=== PATIENT | female | born 1955 | race Caucasian/White ===

== ENCOUNTER 2018-10-11 13:06 | Outpatient (CLI) | payer OTHER ==
--- NOTE | 2018-10-11 14:18 | BD ---
BONE DENSITOMETRY USING DEXA: HISTORY: Postmenopausal screening for osteoporosis. FINDINGS: Lumbar Spine: BMD (g/cm2) L1 0.843 T-Score: -1.3 Z-Score: 0.0 L2 0.933 T-Score: -0.9 Z-Score: 0.6 L3 0.883 T-Score: -1.8 Z-Score: 0.3 L4 0.975 T-Score: -0.8 Z-Score: 0.8 L1-L4 0.910 T-Score: -1.2 Z-Score: 0.2 Femoral Neck: 0.633 T-Score: -1.9 Z-Score: -0.6 Total Femur: 0.782 T-Score: -1.3 Z-Score: -0.3 The 28-bdog-fexpufmy risk for a major osteoporotic fracture is 9% and for a hip fracture is 1.1%. Impression: Osteopenia. POS: [facility]
== END 2018-10-11 13:07 | disposition home or self-care (01) ==
LOC: BICMAMMO 13:06
PROVIDERS: ATTEND Obstetrics & Gynecology
DX: Z12.31 Encounter for screening mammogram for malignant neoplasm of breast (principal); Z13.820 Encounter for screening for osteoporosis; Z85.89 Personal history of malignant neoplasm of other organs and systems; Z80.3 Family history of malignant neoplasm of breast; Z80.41 Family history of malignant neoplasm of ovary
CPT/HCPCS: 77063; 77067; 77080

== ENCOUNTER 2019-10-12 10:46 | Outpatient (CLI) | payer OTHER ==
--- NOTE | 2019-10-12 11:28 | MMO ---
Bilateral MAMMO Bilat Screen [facility]. CLINICAL HISTORY: Patient is 63 years old and is seen for screening. The patient has the following family history of breast cancer: mother. The patient has no personal history of cancer. VIEWS: The views performed were: bilateral craniocaudal with tomosynthesis and bilateral mediolateral oblique with tomosynthesis. FILMS COMPARED: The present examination has been compared to prior imaging studies performed at [facility] on 09/06/2015, 09/17/2016, 09/30/2017 and 10/11/2018. This study has been interpreted with the assistance of computer-aided detection. MAMMOGRAM FINDINGS: The breasts are heterogeneously dense, which could obscure a lesion on mammography. There are no suspicious masses, suspicious calcifications, or new areas of architectural distortion. IMPRESSION: THERE IS NO MAMMOGRAPHIC EVIDENCE OF MALIGNANCY. A ROUTINE FOLLOW-UP MAMMOGRAM IN 1 YEAR IS RECOMMENDED. THE RESULTS OF THIS EXAM WERE SENT TO THE PATIENT. ACR BI-RADS Category 1 - Negative MAMMOGRAPHY NOTE: 1. A negative mammogram report should not delay a biopsy if a dominant of clinically suspicious mass is present. 2. Approximately 10% to 15% of breast cancers are not detected by mammography. 3. Adenosis and dense breasts may obscure an underlying neoplasm. Reported by: KULDIP SANON MD Electonically Signed: [id number]
== END 2019-10-12 10:47 | disposition home or self-care (01) ==
LOC: BICMAMMO 10:46
PROVIDERS: ATTEND Obstetrics & Gynecology
DX: Z12.31 Encounter for screening mammogram for malignant neoplasm of breast (principal); Z80.3 Family history of malignant neoplasm of breast
CPT/HCPCS: 77063; 77067

== ENCOUNTER 2020-10-14 09:27 | Outpatient (CLI) | payer BC ==
--- NOTE | 2020-10-14 10:43 | BD ---
EXAM: Bone densitometry using DEXA HISTORY: 64 yo female. Screening for postmenopausal osteoporosis FINDINGS: L1--bone mineral density 0.909 g/sq cm; T score -0.7 ; Z score 0.7 L2--bone mineral density 0.913 g/sq cm; T score -1.0 ; Z score 0.5 L3--bone mineral density 0.924 g/sq cm; T score -1.5 ; Z score 0.2 L4--bone mineral density 0.957 g/sq cm; T score -0.9 ; Z score 0.8 Total L1-L4--bone mineral density 0.927 g/sq cm; T score -1.1 ; Z score 0.5 Left femoral neck--bone mineral density0.687; T score -1.5 ; Z score -0.1 Total proximal left femur--bone mineral density 0.802; T score -1.1 ; Z score 0.0 There has been an interval increase of 1.8% in the BMD of the lumbar spine and a increase of 2.6% i n the BMD of the proximal femur since the previous study of 10/11/2018. IMPRESSION: Osteopenia
--- NOTE | 2020-10-14 10:55 | MMO ---
Bilateral MAMMO Bilat Screen [facility]. CLINICAL HISTORY: Patient is 64 years old and is seen for screening. The patient has the following family history of breast cancer: mother. The patient has no personal history of cancer. VIEWS: The views performed were: bilateral craniocaudal with tomosynthesis and bilateral mediolateral oblique with tomosynthesis. FILMS COMPARED: The present examination has been compared to prior imaging studies performed at [facility] on 09/17/2016, 09/30/2017, 10/11/2018 and 10/12/2019. This study has been interpreted with the assistance of computer-aided detection. MAMMOGRAM FINDINGS: The breasts are heterogeneously dense, which could obscure a lesion on mammography. There are stable benign appearing calcifications seen in both breasts. There are no suspicious masses, suspicious calcifications, or new areas of architectural distortion. IMPRESSION: THERE IS NO MAMMOGRAPHIC EVIDENCE OF MALIGNANCY. A ROUTINE FOLLOW-UP MAMMOGRAM IN 1 YEAR IS RECOMMENDED. THE RESULTS OF THIS EXAM WERE SENT TO THE PATIENT. ACR BI-RADS Category 2 - Benign finding MAMMOGRAPHY NOTE: 1. A negative mammogram report should not delay a biopsy if a dominant of clinically suspicious mass is present. 2. Approximately 10% to 15% of breast cancers are not detected by mammography. 3. Adenosis and dense breasts may obscure an underlying neoplasm. Reported by: FRANCIA ERAZO MD Electonically Signed: [id number]
== END 2020-10-14 09:28 | disposition home or self-care (01) ==
LOC: BICMAMMO 09:27
PROVIDERS: ATTEND Obstetrics & Gynecology
DX: Z12.31 Encounter for screening mammogram for malignant neoplasm of breast (principal); M81.0 Age-related osteoporosis without current pathological fracture; M85.89 Other specified disorders of bone density and structure, multiple sites; Z79.890 Hormone replacement therapy; Z80.3 Family history of malignant neoplasm of breast
CPT/HCPCS: 77063; 77067; 77080

== ENCOUNTER 2021-11-07 08:36 | Outpatient (CLI) | payer BC | END 2021-11-07 08:37 | disposition home or self-care (01) | LOC: BICMAMMO 08:36 | PROVIDERS: ATTEND Obstetrics & Gynecology | DX: Z12.31 Encounter for screening mammogram for malignant neoplasm of breast (principal); Z80.3 Family history of malignant neoplasm of breast | CPT/HCPCS: 77063; 77067 ==

== ENCOUNTER 2022-12-03 14:07 | Outpatient (CLI) | payer MEDICARE | END 2022-12-03 14:08 | disposition home or self-care (01) | LOC: BICMAMMO 14:07 | PROVIDERS: ATTEND Obstetrics & Gynecology | DX: Z12.31 Encounter for screening mammogram for malignant neoplasm of breast (principal); Z80.3 Family history of malignant neoplasm of breast | CPT/HCPCS: 77063; 77067 ==

== ENCOUNTER 2024-01-03 09:11 | Outpatient (CLI) | payer MEDICARE | END 2024-01-03 09:12 | disposition home or self-care (01) | LOC: BICMAMMO 09:11 | PROVIDERS: ATTEND Obstetrics & Gynecology | DX: Z12.31 Encounter for screening mammogram for malignant neoplasm of breast (principal); M85.89 Other specified disorders of bone density and structure, multiple sites; M81.0 Age-related osteoporosis without current pathological fracture; Z80.3 Family history of malignant neoplasm of breast | CPT/HCPCS: 77063; 77067; 77080 ==